=== PATIENT | female | born 1995 | race Caucasian/White ===

== ENCOUNTER 2016-10-22 15:36 | Emergency (ER) | payer MEDICAID ==
[~2016-10-22] VITALS: Ht 160 cm; Wt 61.2 kg
[~2016-10-22 15:36] MED LIST: TYLENOL PO
--- NOTE | 2016-10-22 16:32 | NUR ---
Patient discharged to home in stable conditon. Written and verbal after care instructions given. Patient verbalizes understanding of instructions.
== END 2016-10-22 16:33 | disposition home or self-care (01) ==
LOC: ER 15:36
DX: R19.5 Other fecal abnormalities (principal); Z88.8 Allergy status to other drugs, medicaments and biological substances
CPT/HCPCS: 87046; 89055; A4663